=== PATIENT | male | born 1965 | race Caucasian/White ===

== ENCOUNTER 2019-08-01 07:41 | Outpatient (RCR) | payer OTHER, SELFPAY ==
--- NOTE | 2019-08-01 07:53 | PTOPEVAL ---
Thank you for referring August Garcia to [facility] [place] [facility]. Please review, sign, date and return this plan of care [facility]. I agree with and certify that the following plan of care is medically necessary. Referring Physician Date Admitting Provider: Attending Provider: Robert Bartholomew MD Referring Provider: *PT Outpatient Evaluation Start: 08/01/19 07:17 Freq: Status: Active Protocol: Document 08/01/19 07:15 J (Rec: 08/01/19 07:46 [facility] [id number]) Therapy Assessment Status Assessment Status Assessment Status Evaluation Evaluation Information Problem Diagnosis lumbar pain Onset 07/28/19 Additional Evaluation Detail oswestry = 52% Subjective Information patient reports he had a tree Query Text:As Reported By Patient/ fall and hit his back about 5- Family 6 years ago. he reports since then, he has been in pain off and on. 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 he reports he is coming to therapy to try to relieve his pain, improve his function, and have further testing done. he reports he has had no new x- rays since may of last year. he reports he has increased pain with lifting objects away from his body (chain saw, climbing ladders, lifting 80- 100lbs). Prior Level of Function Comments Additional Prior Level of Function patient reports he has had Comments pain in the back since an incident with a tree about 5-6 years ago. he reports he is pushing through the pain, but requires increased time to perform activities. he also reports he is having difficulty with completing some tasks without rest. he reports he recently had 2 injections and is on a dose pack of prednisone. Pain Assessment Timing of Pain Assessment Timing of Pain Assessment Assessment Pain Scale Pain Scale Used Numeric (1 - 10) Self Report Pain Assessment Lower Back Reported Pain Level 2 Pain Radiation Left Leg,Right Leg Radicular Pain Location f
--- NOTE | 2019-09-05 15:42 | PTOPEVAL ---
Thank you for referring August Garcia to [facility]. Please review, sign, date and return this plan of care [facility]. I agree with and certify that the following plan of care is medically necessary. Referring Physician Date Admitting Provider: Attending Provider: Robert Bartholomew MD Referring Provider: *PT Outpatient Evaluation Start: 08/01/19 07:17 Freq: Status: Active Protocol: Document 09/05/19 14:59 JORGE (Rec: 09/05/19 15:42 JORGE [email or web address]) Therapy Assessment Status Assessment Status Assessment Status Discharge Evaluation Information Problem Diagnosis lumbar pain Onset 07/28/19 Subjective Information Pt. reports that he still has Query Text:As Reported By Patient/ pain especially with getting Family up in the morning. He states that he continues to exercise daily. He reports that he will return to the doctor to discuss his lingering pain. Pain Assessment Pain Scale Pain Scale Used Numeric (1 - 10) Self Report Pain Assessment Lower Back Reported Pain Level 4 Pain Frequency Continuous Lowest Pain Intensity 4 Greatest Pain Intensity 10 Pain Score Pain Score 4: Self Report Cervical and Lumbar ROM Lumbar ROM Lumbar Flexion Active Floor Query Text:Hands to: Lumbar Extension (0-40) 15 Query Text:Active in Degrees Lower Extremity Muscle Strength Testing General Lower Extremity Strength Gross Lower Extremity Strength bilateral hip flexion 5/5, bilateral knee flexion 5/5, bilateral knee extension 5/5, bilateral ankle dorsiflexion 5 /5 Muscle Length Testing Muscle Length Testing Left Hamstring Length 0 Query Text:(90 - 90 Position) Right Hamstring Length 0 Query Text:(90 - 90 Position) Palpation Assessment Palpation Palpation TTP continues to be reported with posterior to anterior lumbar glides and tenderness at the paraspinals. PT Clinical Summary Clinical Summary Protocol: PTEVCODE PT Clinical Summary Mr. Jose leyva attended a total of 11 treatment sessions focusing on core strength, flexibility and pain reduction . In this time he has demonstrated slight improvements in stre
== END 2019-09-05 07:45 | disposition home or self-care (01) ==
LOC: CHSPT 07:41
PROVIDERS: PCP Internal Medicine; Visit Provider Internal Medicine
DX: M54.5 Low back pain (principal)
CPT/HCPCS: 97014; 97110; 97140; 97161; G0283

== ENCOUNTER → 2019-09-25 07:42 | Outpatient (CLI) | payer OTHER, SELFPAY ==
--- NOTE | ~2019-09-25 | MR_ITS ---
EXAMINATION: MR lumbar spine wo con DATE: 09/25/2019 08:25 INDICATION: Low back pain. TECHNIQUE: Magnetic resonance imaging (MRI) of the lumbar spine was performed without intravenous con trast. Sequences included sagittal T2-weighted FSE, sagittal T2-weighted FS FSE, sagittal T1-weighted FSE, and axial T2-weighted FSE. COMPARISON: Lumbar spine radiographs 05/04/2018 FINDINGS: There is 8 degrees levocurvature of lumbar spine. S1 is a transitional segment. There is 3 mm retrolisthesis of L3 on L4. Vertebral body heights are normal. 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 There is mildly decreased disc height at L3-L4, L4-L5, an d L5-S1. The distal spinal cord signal intensity is normal. The conus medullaris is at L1-L2. The fol lowing disc levels are specifically discussed: L1-L2: The disc does not extend beyond the endplate margin. There is mild bilateral facet joint osteo arthritis. There is no neural foraminal stenosis. There is no central canal stenosis. L2-L3: The disc does not extend beyond the endplate margin. There is mild bilateral facet joint osteo arthritis. There is no neural foraminal stenosis. There is no central canal stenosis. L3-L4: The disc is bulging with superimposed right central extrusion. There is mild bilateral facet j oint osteoarthritis. There is moderate bilateral neural foraminal stenosis. There is mild central can al stenosis with asymmetry stenosis of right lateral recess. L4-L5: The disc is bulging and has an annular fissure. There is mild bilateral facet joint osteoarthr itis. There is mild bilateral neural foraminal stenosis. There is mild central canal stenosis. L5-S1: The disc is bulging and has an annular fissure. There is severe right and moderate left facet joint osteoarthritis. There is mild right and moderate left neural foraminal stenosis. There is mild central canal stenosis with asymmetry stenosis of left lateral recess. IMPRESSION: 1. Moderate lumbar spondylosis. Reviewed, dictated and finalized at location A.
== END ==
PROVIDERS: PCP Internal Medicine; Visit Provider Internal Medicine
DX: M47.896 Other spondylosis, lumbar region (principal)
CPT/HCPCS: 72148

== ENCOUNTER 2020-09-04 12:25 | Outpatient (CLI) | payer OTHER, SELFPAY ==
[2020-09-04 12:47] LABS: Hematocrit 44.7 % (40.0-54.0); Mean Corpuscular HGB Conc 33.6 g/dL (32.0-36.0); Mean Corpuscular Hemoglobin 29.1 pg (27.0-31.0); Mean Corpuscular Volume 86.8 fL (78.0-102.0); Platelet Count Result 105 K/mm3 (150-420); Red Blood Count 5.15 M/mm3 (4.70-6.10); Red Cell Distribution Width 12.9 % (11.6-14.4)
[2020-09-04 13:11] LABS: Band Neutrophils Percent 4 % (0-6); Basophils Absolute Manual 0.03 K/mm3 (0-0.1); Basophils Percent Manual 1 % (0-1); Eosinophils Absolute Manual 0.06 K/mm3 (0.02-0.5); Eosinophils Percent Manual 2 % (1-6); Lymphocytes Absolute Manual 1.05 K/mm3 (1.1-4.5); Lymphocytes Percent Manual 35 % (18-44); Monocytes Percent Manual 10 % (3-9); Myelocytes Percent 1 %; Neutrophils Absolute Manual 1.53 K/mm3 (1.3-6.7); Neutrophils Percent Manual 47 % (46-73); Total Cells Counted 100
[2020-09-04 13:14] LABS: Alanine Aminotransferase 127 U/L (16-63); Albumin Level 3.9 g/dL (3.4-5.0); Alkaline Phosphatase 95 U/L (46-116); Anion Gap 11 mmol/L (8-16); Aspartate Amino Transferase 102 U/L (15-37); Bilirubin,Total 0.4 mg/dL (0.00-1.00); Blood Urea Nitrogen 13 mg/dL (7-18); CRP 3.4 mg/dL (0.0-0.9); Calcium 9.5 mg/dL (8.5-10.1); Carbon Dioxide 30 mmol/L (21-32); Chloride 102 mmol/L (98-108); Estimated Glomerular Filt Rate > 60; Glucose 89 mg/dL (70-99); Osmolality Calculated 295 mOsm/kg (285-295); Potassium 4.5 mmol/L (3.5-5.1); Sodium 143 mmol/L (136-145); Total Protein 7.2 g/dL (6.4-8.2)
[2020-09-04 13:51] LABS: SARS-CoV-2 RNA PCR Negative (Negative)
[2020-09-07 19:48] LABS: CMV IgM Antibody <30.00 AU/mL (<30.00)
[2020-09-09 09:10] LABS: EBV Nuclear Ab Interpretation Past; EBV Virus Capsid Ag IgG Ab >750.00 U/mL (<18.00); EBV Virus Capsid Ag IgM Ab <36.00 U/mL (<36.00)
[2020-09-10 03:24] LABS: Hepatitis A Antibody IgM Nonreactive; Hepatitis B Core Antibody Nonreactive (Nonreactive); Hepatitis B Surface Antigen Nonreactive (Nonreactive); Hepatitis C Signal to Cutoff 0.04 ratio (<1.00); Hepatitis C Virus Antibody Nonreactive (Nonreactive)
[2020-09-10 18:46] LABS: Lyme Disease Ab (IgM), Blot Negative (Negative); Lyme Disease Ab(IgG), Blot Negative (Negative)
== END 2020-09-04 12:26 | disposition home or self-care (01) ==
PROVIDERS: PCP Internal Medicine; Visit Provider Internal Medicine
DX: R50.9 Fever, unspecified (principal); R94.5 Abnormal results of liver function studies; T14.8XXA Other injury of unspecified body region, initial encounter; W57.XXXA Bitten or stung by nonvenomous insect and other nonvenomous arthropods, initial encounter; Z20.822 Contact with and (suspected) exposure to COVID-19
CPT/HCPCS: 36415; 80053; 80074; 85025; 86140; 86617; 86645; 86664; 86665; 86666; 86769; 87207; C9803; U0003; U0005

== ENCOUNTER 2020-09-09 09:29 | Outpatient (CLI) | payer OTHER, SELFPAY ==
[2020-09-09 09:45] LABS: Hematocrit 42.6 % (40.0-54.0); Hemoglobin 14.1 g/dL (14.0-18.0); Mean Corpuscular HGB Conc 33.1 g/dL (32.0-36.0); Mean Corpuscular Hemoglobin 29.4 pg (27.0-31.0); Mean Corpuscular Volume 88.9 fL (78.0-102.0); Mean Platelet Volume 9.4 fl (8.7-11.0); Platelet Count Result 294 K/mm3 (150-420); Red Blood Count 4.79 M/mm3 (4.70-6.10)
[2020-09-09 10:25] LABS: Alanine Aminotransferase 183 U/L (16-63); Albumin Level 3.9 g/dL (3.4-5.0); Alkaline Phosphatase 96 U/L (46-116); Anion Gap 10 mmol/L (8-16); Aspartate Amino Transferase 65 U/L (15-37); Bilirubin,Total 0.3 mg/dL (0.00-1.00); Blood Urea Nitrogen 16 mg/dL (7-18); CRP < 0.5 mg/dL (0.0-0.9); Calcium 9.5 mg/dL (8.5-10.1); Carbon Dioxide 28 mmol/L (21-32); Chloride 105 mmol/L (98-108); Estimated Glomerular Filt Rate > 60; Glucose 98 mg/dL (70-99); Osmolality Calculated 297 mOsm/kg (285-295); Potassium 4.9 mmol/L (3.5-5.1); Sodium 143 mmol/L (136-145); Total Protein 7.3 g/dL (6.4-8.2)
[2020-09-09 10:28] LABS: Band Neutrophils Percent 0 % (0-6); Lymphocytes Absolute Manual 7.48 K/mm3 (1.1-4.5); Lymphocytes Percent Manual 68 % (18-44); Neutrophils Absolute Manual 2.75 K/mm3 (1.3-6.7); Neutrophils Percent Manual 25 % (46-73); Total Cells Counted 100
[2020-09-09 10:29] LABS: Basophils Absolute Manual 0.11 K/mm3 (0-0.1); Basophils Percent Manual 1 % (0-1); Eosinophils Absolute Manual 0.11 K/mm3 (0.02-0.5); Eosinophils Percent Manual 1 % (1-6); Monocytes Absolute Manual 0.55 K/mm3 (0.1-0.90); Monocytes Percent Manual 5 % (3-9); Platelet Estimate Adequate (Adequate)
[2020-09-12 14:59] LABS: CMV IgG Antibody <0.60 U/mL (<0.60)
== END 2020-09-09 09:30 | disposition home or self-care (01) ==
LOC: CHSLAB 09:32
PROVIDERS: PCP Internal Medicine; Visit Provider Internal Medicine
DX: D72.819 Decreased white blood cell count, unspecified (principal); R94.5 Abnormal results of liver function studies; R50.9 Fever, unspecified
CPT/HCPCS: 36415; 80053; 85025; 86140; 86617; 86638; 86644; 86666; 86757

== ENCOUNTER 2020-09-16 08:27 | Outpatient (CLI) | payer OTHER, SELFPAY ==
[2020-09-16 08:40] LABS: Hematocrit 42.9 % (40.0-54.0); Mean Corpuscular HGB Conc 32.6 g/dL (32.0-36.0); Mean Corpuscular Hemoglobin 28.9 pg (27.0-31.0); Mean Corpuscular Volume 88.6 fL (78.0-102.0); Mean Platelet Volume 9.2 fl (8.7-11.0); Platelet Count Result 355 K/mm3 (150-420); Red Blood Count 4.84 M/mm3 (4.70-6.10); Red Cell Distribution Width 13.1 % (11.6-14.4); White Blood Count 8.9 K/mm3 (4.8-10.8)
[2020-09-16 09:53] LABS: Band Neutrophils Percent 0 % (0-6); Eosinophils Absolute Manual 0.17 K/mm3 (0.02-0.5); Eosinophils Percent Manual 2 % (1-6); Lymphocytes Absolute Manual 5.25 K/mm3 (1.1-4.5); Lymphocytes Percent Manual 59 % (18-44); Monocytes Absolute Manual 0.08 K/mm3 (0.1-0.90); Monocytes Percent Manual 1 % (3-9); Neutrophils Absolute Manual 3.38 K/mm3 (1.3-6.7); Neutrophils Percent Manual 38 % (46-73); Platelet Estimate Adequate (Adequate); Total Cells Counted 100
[2020-09-16 13:27] LABS: Alanine Aminotransferase 65 U/L (16-63); Albumin Level 3.9 g/dL (3.4-5.0); Alkaline Phosphatase 84 U/L (46-116); Anion Gap 11 mmol/L (8-16); Aspartate Amino Transferase 21 U/L (15-37); Bilirubin,Total 0.5 mg/dL (0.00-1.00); Blood Urea Nitrogen 16 mg/dL (7-18); Calcium 9.6 mg/dL (8.5-10.1); Carbon Dioxide 26 mmol/L (21-32); Chloride 104 mmol/L (98-108); Estimated Glomerular Filt Rate > 60; Glucose 103 mg/dL (70-99); Osmolality Calculated 293 mOsm/kg (285-295); Potassium 4.6 mmol/L (3.5-5.1); Sodium 141 mmol/L (136-145); Total Protein 7.4 g/dL (6.4-8.2)
[2020-09-16 13:40] LABS: CRP < 0.2 mg/dL (0.0-0.9)
== END 2020-09-16 08:28 | disposition home or self-care (01) ==
PROVIDERS: PCP Internal Medicine; Visit Provider Internal Medicine
DX: D72.819 Decreased white blood cell count, unspecified (principal); D69.6 Thrombocytopenia, unspecified
CPT/HCPCS: 36415; 80053; 85025; 86140

== ENCOUNTER 2020-09-27 09:20 | Outpatient (CLI) | payer OTHER, SELFPAY ==
[2020-09-27 09:33] LABS: Basophils Absolute Auto 0.06 K/mm3 (0.00-0.10); Basophils Percent Auto 1.1 % (0.0-1.0); Eosinophils Absolute Auto 0.22 K/mm3 (0.02-0.50); Hematocrit 44.4 % (40.0-54.0); Hemoglobin 14.3 g/dL (14.0-18.0); Immature Granulocyte Absolute 0.01 K/mm3 (0.00-0.00); Immature Granulocyte Percent A 0.2 % (0.0-0.0); Lymphocytes Absolute Auto 2.12 K/mm3 (1.10-4.50); Lymphocytes Percent Auto 38.2 % (18.0-42.0); Mean Corpuscular HGB Conc 32.2 g/dL (32.0-36.0); Mean Corpuscular Hemoglobin 28.7 pg (27.0-31.0); Mean Platelet Volume 9.3 fl (8.7-11.0); Monocytes Absolute Auto 0.35 K/mm3 (0.10-0.90); Monocytes Percent Auto 6.3 % (2.0-11.0); Neutrophils Absolute Auto 2.8 K/mm3 (1.7-7.2); Neutrophils Percent Auto 50.2 % (50.0-70.0); Platelet Count Result 240 K/mm3 (150-420); Red Blood Count 4.99 M/mm3 (4.70-6.10); White Blood Count 5.6 K/mm3 (4.8-10.8)
[2020-09-27 10:22] LABS: Alanine Aminotransferase 40 U/L (16-63); Alkaline Phosphatase 80 U/L (46-116); Anion Gap 11 mmol/L (8-16); Aspartate Amino Transferase 23 U/L (15-37); Bilirubin,Total 0.3 mg/dL (0.00-1.00); Blood Urea Nitrogen 22 mg/dL (7-18); Calcium 9.6 mg/dL (8.5-10.1); Carbon Dioxide 28 mmol/L (21-32); Chloride 104 mmol/L (98-108); Estimated Glomerular Filt Rate > 60; Glucose 88 mg/dL (70-99); Osmolality Calculated 298 mOsm/kg (285-295); Sodium 143 mmol/L (136-145); Total Protein 7.5 g/dL (6.4-8.2)
== END 2020-09-27 09:21 | disposition home or self-care (01) ==
LOC: CHSLAB 09:24
PROVIDERS: PCP Internal Medicine; Visit Provider Internal Medicine
DX: A77.49 Other ehrlichiosis (principal)
CPT/HCPCS: 36415; 80053; 85025

== ENCOUNTER 2021-09-17 11:02 | Outpatient (CLI) | payer OTHER, SELFPAY ==
--- NOTE | ~2021-09-17 | XR_ITS ---
EXAM: XR ribs LT 2V w CXR 2V DATE: 09/17/2021 11:35 HISTORY: Left lat chest pain, cough, fell from horse 08/30 . COMPARISON: None available. FINDINGS: The lungs are clear. Normal cardiomediastinal silhouette. Normal mineralization. Mildly di splaced fracture of the left lateral sixth rib. Nondisplaced fracture of the anterolateral left seven th rib. No lytic or blastic lesion. Joint spaces are maintained. No erosion or periosteal change. Sof t tissues within normal limits. IMPRESSION: Fractures of the left lateral sixth and left anterolateral seventh ribs. Reviewed, dictated and finalized at location K.
[2021-09-17 11:18] LABS: Basophils Absolute Auto 0.06 K/mm3 (0.00-0.10); Basophils Percent Auto 1.1 % (0.0-1.0); Eosinophils Absolute Auto 0.13 K/mm3 (0.02-0.50); Eosinophils Percent Auto 2.4 % (1.0-6.0); Hemoglobin 14.5 g/dL (14.0-18.0); Immature Granulocyte Absolute 0.01 K/mm3 (0.00-0.00); Immature Granulocyte Percent A 0.2 % (0.0-0.0); Lymphocytes Absolute Auto 1.66 K/mm3 (1.10-4.50); Lymphocytes Percent Auto 31.1 % (18.0-42.0); Mean Corpuscular Hemoglobin 29.8 pg (27.0-31.0); Mean Corpuscular Volume 90.5 fL (78.0-102.0); Mean Platelet Volume 9.4 fl (8.7-11.0); Monocytes Absolute Auto 0.28 K/mm3 (0.10-0.90); Monocytes Percent Auto 5.2 % (2.0-11.0); Neutrophils Absolute Auto 3.2 K/mm3 (1.7-7.2); Platelet Count Result 309 K/mm3 (150-420); Red Blood Count 4.86 M/mm3 (4.70-6.10); Red Cell Distribution Width 12.9 % (11.6-14.4); White Blood Count 5.3 K/mm3 (4.8-10.8)
[2021-09-17 11:19] LABS: Add Urine Microscopic? NO; Appearance Urine Clear (Clear); Bilirubin Urine Negative (Negative); Blood Urine Negative (Negative); Color Urine Light Yellow (Yellow); Glucose Urine UA Negative (Negative); Ketones Urine Negative (Negative); Leukocyte Esterase Ur Negative (Negative); Nitrate Urine Negative (Negative); Protein Urine Negative (Negative); Urobilinogen Urine 0.2 mg/dL (0.2-1.0); pH Urine 6.5 (5.0-8.0)
[2021-09-17 12:25] LABS: Alanine Aminotransferase 32 U/L (16-63); Albumin Level 4.2 g/dL (3.4-5.0); Alkaline Phosphatase 100 U/L (46-116); Anion Gap 9 mmol/L (8-16); Aspartate Amino Transferase 18 U/L (15-37); Bilirubin,Total 0.4 mg/dL (0.00-1.00); Blood Urea Nitrogen 18 mg/dL (7-18); Calcium 9.7 mg/dL (8.5-10.1); Carbon Dioxide 29 mmol/L (21-32); Chloride 102 mmol/L (98-108); Estimated Glomerular Filt Rate > 60; Glucose 91 mg/dL (70-99); Osmolality Calculated 291 mOsm/kg (285-295); Potassium 4.8 mmol/L (3.5-5.1); Sodium 140 mmol/L (136-145); Total Protein 7.5 g/dL (6.4-8.2)
[2021-09-17 12:27] LABS: CRP < 0.2 mg/dL (0.0-0.9)
== END 2021-09-17 11:03 | disposition home or self-care (01) ==
LOC: CHSLAB 11:05
PROVIDERS: PCP Internal Medicine; Visit Provider Internal Medicine
DX: R07.9 Chest pain, unspecified (principal); R05.9 Cough, unspecified
CPT/HCPCS: 36415; 71046; 71100; 80053; 81003; 85025; 86140